=== PATIENT | female | born 1955 | race African-American/Black ===

== ENCOUNTER 2017-01-06 11:50 | Inpatient (IN) ==
--- NOTE | 2017-01-06 12:21 | EKG Report ---
Stationary ECG Study [facility] ER Test Date: 01/06/2017 12:01:15 PM Pat Name: HELADIO HAIRSTON Department: Room: 265 Gender: F Nanoscience Technician: : 1955 Requested by: Enrique Nielsen Order Number: [id number] Reading MD: AGUSTIN CHAVIS Intervals [place] Rate: 100 P: 13 HI: 175 QRS: 4 QRSD: 66 T: 52 QT: 342 QTc: 399 Interpretive Statements SINUS TACHYCARDIA ANTERIOR INFARCT, PROBABLY OLD Electronically Signed On 01-08-17 12:38:48 SENIOR JAVA SOFTWARE DEVELOPER by AGUSTIN CHAVIS [id number]
[2017-01-06 12:41] LABS: Basophils % 0.1 % (0.0-0.8); Eosinophils # 0.1 10*3/uL (0.0-0.87); Eosinophils % 0.9 % (0.00-10.9); Hematocrit 24.6 VOL% (35.7-47.0); Hemoglobin 8.2 GM/DL (12.0-16.0); Immature Granulocytes % 0.4 %; Immature Granulocytes Absolute 0.03 #; Lymphocytes # 1.9 10*3/uL (1.4-4.0); Lymphocytes % 22.3 % (21.3-54.2); Mean Corpuscular HGB Conc 33.3 GM/DL (32-36); Mean Corpuscular Hemoglobin 31 PG (27-34); Mean Corpuscular Volume 92.5 FL (87-102); Mean Platelet Volume 11.7 FL (9.6-12.0); Monocytes # 0.5 10*3/uL (0.11-0.8); Neutrophils % 70.3 % (38.7-73.9); Platelet Count 175 T/CUMM (130-400); Red Blood Count 2.66 MC/CUMM (3.8-5.5); White Blood Count 8.5 T/CUMM (4-12)
[2017-01-06 12:49] LABS: PT Patient Result 10.9 SECS; Partial Thromboplastin Time < 21.0 SECS (0-40)
--- NOTE | 2017-01-06 12:50 | XRay Report ---
Portable chest. Indication: Dyspnea. Shortness of breath. The heart is normal in size. The mediastinal contours are unremarkable. The pulmonary vasculature is normal. Suspected small calcified lymph node in the right paratracheal region. There is no consolidation, pneumothorax, or pleural effusion. Degenerative changes are noted within the spinal column and shoulders. Impression: No acute abnormality. PROCEDURE INTERPRETED AT [facility] DEPARTMENT OF RADIOLOGY Final Report Signed by: Dr. Lauren Sahni
[2017-01-06 13:24] LABS: Alanine Aminotransferase 17 U/L (13-56); Albumin 2.8 G/DL (3.4-5.0); Alkaline Phosphatase 92 U/L (45-117); Aspartate Amino Transferase 9 U/L (0-37); Blood Urea Nitrogen 27 MG/DL (7-18); Calcium 8.1 MG/DL (8.5-10.1); Glucose 285 MG/DL (74-106); Osmolality,Calculated 302.7 MOS/KG (273-304); Potassium 4.2 MMOL/L (3.5-5.1); Sodium 145 MMOL/L (136-145); Total Protein 5.6 G/DL (6.4-8.3); Troponin I Only < 0.015 NG/ML (0.00-0.045)
--- NOTE | 2017-01-06 13:33 | Emergency Department Note ---
Kenneth Eid Emily, am scribing for, and in the presence of, Enrique Dockery MD 13:02. Sarkis Eid Phillip K, MD, personally performed the services described in this documentation, ascribed by Laura Cooper in my presence, and it is both accurate and complete [id number] . Arrival - Arrival Chief Complaint: Chest Pain Stated Complaint: bleeding and chest pain ED Nursing Triage Note: c/o rectal bleeding and chest pain. rectal bleeding started yesterday, was seen yesterday for. states that chest pain started toda+ . +SOB Mode of Arrival: Wheelchair Limitations: No Limitations Source: Patient Time Seen by Provider: 01/06/17 12:35 - History of Present Illness HPI Narrative: Pt is a 61 y/o female who came to ED with c/o rectal bleeding and chest pain that started yesterday. Pt has associated sxs SOB, pain worse on exertion, abdomen cramping but denies N/V or fever. Pt describes rectal bleeding bright red in color with clots. Pt notes having scope done last week. PMHx of heart cath -5yrs ago. Onset (ago): day(s) Consistency: constant Severity: moderate Severity scale (1-10): 6 Quality: aching Allergies/Adverse Reactions: Allergies Allergy/AdvReac Type Severity Reaction Status Date / Time No Known Allergies Allergy Verified 08/27/16 11:38 Home Medications: Home Medications Medication Instructions Recorded Confirmed Type Clopidogrel [Plavix] 75 mg PO DAILY 08/27/16 01/06/17 History Dapagliflozin Propanediol [Farxiga] 5 mg PO DAILY 08/27/16 01/06/17 History Furosemide Tab [Lasix Tab] 40 mg PO DIRECTED PRN 08/27/16 01/06/17 History Insulin Glargine [Lantus] 22 units SUBCUT BEDTIME 08/27/16 01/06/17 History Lisinopril/Hydrochlorothiazide 1 tablet PO DAILY 08/27/16 01/06/17 History [Lisinopril-Hctz 20-12.5 mg Tab] Metoprolol Succinate 25 mg PO DAILY 08/27/16 01/06/17 History Omeprazole 20 mg PO BID 08/27/16 01/06/17 History glipiZIDE [Glipizide] 5 mg PO BID 08/27/16 01/06/17 History metFORMIN [Glucophage] 850 mg PO BID 08/27/16 01/06/17 History Ciprofloxacin Tab [Cipro Tab] 500 mg PO BID #20 tablet 01/05/17 01/06/17 Rx traMADol TAB [Ultram] 50 mg PO Q6H PRN #20 tablet 01/05/17 01/06/17 Rx Review of System - Review of System 12 point system: reviewed and no additional remarkable complaints except as stated - Review of System Constitutional: Absent: chills, fever Respiratory: Present: respiratory distress (SOB) Cardiovascular: Present: chest pain (pain worse with exertion). Absent: dyspnea on exertion Gastrointestinal: Present: abdominal pain (cramping). Absent: nausea, vomiting Genitourinary female: Present: other (rectal bleeding with clots) Musculoskeletal: Absent: arm pain, back pain, leg pain, neck pain Skin: Absent: rash Neurological: Absent: headache, numbness, paresthesias, confusion, abnormal gait Psychiatric: Absent: anxiety Medical,Surgical,& Family Hx - Medical History Cardio: History of: Hypertension, Cardiovascular Problems (STENT) Psychological: History of: Anxiety Disorders No history of: Bipolar Disorder, Depression, Psychiatric Problems Neurology: No history of: Seizures, Neurological Problems HEENT: History of: Eye Problem (Retina problems) Endocrine: History of: Diabetes Mellitus (IDDM), Dyslipidemia Rheumatology: No history of;: Rheumatological Problems Respiratory: No history of: Respiratory Problems Genitourinary: History of: Bladder Problem, Recurring Urinary Tract Infections Gastrointestinal: History of: Clostridium Difficile, GERD, Hemorrhoids, Hematochezia No history of: GI Problems Reproductive: No history of: Abnormal Pap Smear, Breast Cancer, Reproductive Cancer - Surgical History Cardiac Surgeries: Sugical HX of: Cardiac Catheterization (Stent x1 - - Last visit 12/21/2016 - negative w/u) Patient Denies: Carotid Endarterectomy HEENT Surgeries: Surgical HX of: Eye Surgery (Cataracts bilaterally removed) Patient denies: Carotid Endarterectomy Abdominal Surgeries: Surgical HX of: Abdominal Surgery, Appendectomy, Cholecystectomy, Hernia Repair (Abdominal hernia) Patient denies: Colonoscopy, Gastric Bypass Surgery, EGD Reproductive Surgeries: Surgical HX of;: Gynecologic Surgery, Hysterectomy Patient denies;: Genitourinary Surgery Orthopedic Surgeries: Patient denies;: Implanted Devices, Orthopedic Surgery - Family History Family History: Reports;: Family Cancer (Father (lung)), Family Diabetes (Mother , SOn), Family Heart Disease (Mother), Family Hypertension (Mother) Denies;: Family Anesthesia Reaction, Family Psychiatric Problems, Family Stroke - Social History Smoking Status: Never smoker Frequency of Alcohol Use: None Type of Drug Use: None Exam Vital Signs: Vital Signs Temperature 97.0 F L 01/06/17 11:51 Pulse Rate 98 H 01/06/17 11:51 Respiratory Rate 20 01/06/17 12:18 Blood Pressure 143/80 01/06/17 11:51 O2 Sat by Pulse Oximetry 100 01/06/17 11:51 - General General appearance: alert, in no apparent distress - Head Head exam: Present: atraumatic, normocephalic - Eye Eye exam: Present: PERRL, EOMI - ENT ENT exam: Present: mucous membranes moist. Absent: mucous membranes dry - Neck Neck exam: Present: full ROM, tenderness - Chest Chest inspection: Present: symmetric chest wall rise. Absent: tenderness - Respiratory Respiratory exam: Present: normal lung sounds bilaterally. Absent: respiratory distress - Cardiovascular Cardiovascular exam: Present: regular rate, normal rhythm, normal heart sounds - Abdominal Exam Abdominal exam: Present: soft, tenderness (diffusely and tender to palpation). Absent: distention, guarding, rebound - Rectal Exam Rectal exam: Present: heme (+) stool, other (gross blood on rectal exam with clots) - Extremities Exam Extremities exam: Present: full ROM, pedal edema (trace). Absent: tenderness - Neurological Exam Neurological exam: Present: alert, oriented X3, CN II-XII intact. Absent: motor sensory deficit - Psychiatric Psychiatric exam: Present: normal affect, normal mood - Skin Skin exam: Present: warm, dry Course Course Narrative: Patient's cardiac enzymes are negative. Patient is anemic and is having gross blood per rectal exam. We will admit to the hospitalist and consult cardiology. We will hold her Plavix. Results - Labs CBC & BMP: 01/06/17 12:32 01/06/17 11:55 - Diagnostic Findings Procedure: Chest x-ray: report reviewed by me (No acute abnormality.) Disposition Clinical Impression: Lower GI hemorrhage, Chest pain, possible angina pectoris Case discussed with: patient, patient's physician Disposition: Still a Patient Condition: Guarded Additional Instructions: Admit to the hospitalist.
[2017-01-06] MEDS ORDERED: ONDANSETRON 4 MG/2 ML VIAL IV PRN (14:14)
[2017-01-06] MEDS ORDERED: INSULIN LISPRO 100 UNIT/ML SUBCUT ONE (14:14)
[2017-01-06] MEDS ORDERED: BISACODYL 5 MG TABLET PO PRN (14:14)
[2017-01-06] MEDS ORDERED: traMADol 50 MG TABLET PO PRN (14:21)
--- NOTE | 2017-01-06 14:26 | Hospitalist History & Physical ---
<Augusta Cooney N - Last Filed: 01/06/17 14:32> History of Present Illness History of present illness: Ms. Jones is a 61 year old female Home Medications Medication Instructions Recorded Confirmed Type Clopidogrel [Plavix] 75 mg PO DAILY 08/27/16 01/06/17 History Dapagliflozin Propanediol [Farxiga] 5 mg PO DAILY 08/27/16 01/06/17 History Furosemide Tab [Lasix Tab] 40 mg PO DIRECTED PRN 08/27/16 01/06/17 History Insulin Glargine [Lantus] 22 units SUBCUT BEDTIME 08/27/16 01/06/17 History Lisinopril/Hydrochlorothiazide 1 tablet PO DAILY 08/27/16 01/06/17 History [Lisinopril-Hctz 20-12.5 mg Tab] Metoprolol Succinate 25 mg PO DAILY 08/27/16 01/06/17 History Omeprazole 20 mg PO BID 08/27/16 01/06/17 History glipiZIDE [Glipizide] 5 mg PO BID 08/27/16 01/06/17 History metFORMIN [Glucophage] 850 mg PO BID 08/27/16 01/06/17 History Ciprofloxacin Tab [Cipro Tab] 500 mg PO BID #20 tablet 01/05/17 01/06/17 Rx traMADol TAB [Ultram] 50 mg PO Q6H PRN #20 tablet 01/05/17 01/06/17 Rx Allergies Allergy/AdvReac Type Severity Reaction Status Date / Time No Known Allergies Allergy Verified 08/27/16 11:38 Exam - Constitutional Vitals: Period Temp Pulse Resp BP Sys/Gsatelum Pulse Ox Last 24 Hr 97.0 F 98 19-20 143/80 100 Results - Labs CBC & BMP: 01/06/17 12:32 01/06/17 11:55 <Verito Irwin R - Last Filed: 01/06/17 15:05> Assessment and Plan (1) Chest pain Status: Acute Assessment and plan: Serial troponins and EKG no aspirin and Plavix at this time Current Visit: Yes (2) IDDM (insulin dependent diabetes mellitus) Status: Acute Assessment and plan: Restart insulin and glyburide hold metformin Current Visit: Yes (3) Hypertension Status: Acute Assessment and plan: Start Coreg and losartan Current Visit: Yes (4) LALIT (obstructive sleep apnea) Status: Acute Assessment and plan: Dr. Mcgee to evaluate Current Visit: Yes (5) Urinary tract infection Status: Acute Assessment and plan: Continue Rocephin Current Visit: No (6) Hematuria Status: Acute Assessment and plan: May be due to infection but due to the amount of blood will ask urology to see Current Visit: No (7) Lower GI hemorrhage Status: Acute Assessment and plan: Recent colonoscopy will ask Dr. Killian for opinion. Current Visit: Yes History of Present Illness Chief complaint: chest pain History of present illness: Ms. Jones is a 61 year morbid obese -Turkmen female with a history of hypertension and insulin-dependent diabetes presents to the emergency room yesterday with hematuria. Patient was diagnosed with a UTI and given Cipro. She returns today reports that when she was headed down to [place] to see her eye doctor she developed chest pressure with associated shortness of breath and nausea. Patient is currently seeing Dr. Ball. She had a stress test less than a year ago over at [facility]. She had a stent to her heart for years ago. She is currently on aspirin and Plavix which is now on hold. She presents today with rectal bleeding chest pain and hematuria. Dr. Killian had a colonoscopy on December 23, 2016 which showed transverse polyp which was removed via biopsy she also had 2 AVMs in the cecum that were cauterized. Patient also had evidence of cholangio-colitis and moderate sized internal hemorrhoids. We will have cardiology, GI, urology see her today. Medical,Surgical,& Family Hx - Medical History Cardio: History of: Hypertension, Cardiovascular Problems (STENT) Psychological: History of: Anxiety Disorders No history of: Bipolar Disorder, Depression, Psychiatric Problems Neurology: No history of: Seizures, Neurological Problems HEENT: History of: Eye Problem (Retina problems) Endocrine: History of: Diabetes Mellitus (IDDM), Dyslipidemia Rheumatology: No history of;: Rheumatological Problems Respiratory: No history of: Respiratory Problems Genitourinary: History of: Bladder Problem, Recurring Urinary Tract Infections Gastrointestinal: History of: Clostridium Difficile, GERD, Hemorrhoids, Hematochezia No history of: GI Problems Reproductive: No history of: Abnormal Pap Smear, Breast Cancer, Reproductive Cancer - Surgical History Cardiac Surgeries: Sugical HX of: Cardiac Catheterization (Stent x1 - - Last visit 12/21/2016 - negative w/u) Patient Denies: Carotid Endarterectomy HEENT Surgeries: Surgical HX of: Eye Surgery (Cataracts bilaterally removed) Patient denies: Carotid Endarterectomy Abdominal Surgeries: Surgical HX of: Abdominal Surgery, Appendectomy, Cholecystectomy, Hernia Repair (Abdominal hernia) Patient denies: Colonoscopy, Gastric Bypass Surgery, EGD Reproductive Surgeries: Surgical HX of;: Gynecologic Surgery, Hysterectomy Patient denies;: Genitourinary Surgery Orthopedic Surgeries: Patient denies;: Implanted Devices, Orthopedic Surgery - Family History Family History: Reports;: Family Cancer (Father (lung)), Family Diabetes (Mother , SOn), Family Heart Disease (Mother), Family Hypertension (Mother) Denies;: Family Anesthesia Reaction, Family Psychiatric Problems, Family Stroke - Social History Smoking Status: Never smoker Frequency of Alcohol Use: None Type of Drug Use: None Marital Status: Single Lives With:: Alone Functional capacity: independent ambulation - Constitutional Constitutional: Present: fatigue. Absent: fever(s), headache(s) - EENT Eyes: Present: blurry vision. Absent: diplopia Ears: Absent: decreased hearing, ear discharge Nose, mouth and throat: Absent: headache(s), sore throat - Cardiovascular Cardiovascular: Present: chest pain at rest, dyspnea - Respiratory Respiratory: Present: dyspnea, dyspnea on exertion - Gastrointestinal Gastrointestinal: Present: hematochezia, nausea. Absent: abdominal pain, vomiting - Genitourinary Genitourinary: Present: hematuria. Absent: difficulty urinating - Neurological Neurological: Absent: headache(s), syncope - Psychiatric Psychiatric: Absent: anxiety, depression - Endocrine Endocrine: Present: fatigue, heat intolerance. Absent: cold intolerance - Hematologic/Lymphatic Hematologic/Lymphatic: Present: easy bleeding, easy bruising Exam - Constitutional Vitals: Period Temp Pulse Resp BP Sys/Gastelum Pulse Ox Last 24 Hr 97.0 F 98 19-20 143/80 100 General appearance: no acute distress, morbidly obese - Head Head exam: Present: normal inspection, normocephalic - Eye Eye exam: Present: EOMI, conjunctival injection Pupils: Present: WERO, normal accommodation - Neck Neck exam: Present: thyromegaly. Absent: lymphadenopathy - Respiratory Respiratory exam: Present: clear to auscultation bilaterally. Absent: rhonchi, wheezes - Cardiovascular Cardiovascular exam: Present: regular rate and rhythm. Absent: systolic murmur - GI/Abdominal GI/Abdominal exam: Present: normal bowel sounds, soft. Absent: tenderness - Extremities Exam Extremities exam: Present: normal capillary refill, edema - Neurological Exam Neurological exam: Present: alert, oriented X3 - Psychiatric Psychiatric exam: Present: normal affect, normal mood - Skin Skin exam: Present: normal color, warm Results - Labs CBC & BMP: 01/06/17 12:32 01/06/17 11:55 Lab Results: I have reviewed the past 24 hour labs - EKG EKG shows: sinus rhythm (Normal sinus rhythm with Q waves in lead III, aVF, V2, V3 and V4) - Diagnostic Findings Procedure: Chest x-ray: report reviewed by me (No acute abnormality)
--- NOTE | 2017-01-06 16:08 | EKG Report ---
Stationary ECG Study [facility] ER Test Date: 01/06/2017 4:06:55 PM Pat Name: HELADIO HAIRSTON Department: Room: 265 Gender: F Anode Builder: JAISON : 1955 Requested by: Verito Hanna Order Number: [id number] Reading MD: AGUSTIN CHAVIS Intervals [place] Rate: 103 P: 16 SD: 156 QRS: 12 QRSD: 76 T: 50 QT: 349 QTc: 408 Interpretive Statements SINUS TACHYCARDIA Electronically Signed On 01-08-17 12:41:50 GEOSPATIAL DEVELOPER by AGUSTIN CHAVIS [email or web address]
[2017-01-06] MEDS ORDERED: DEXTROSE 50% 25 GM/50 ML VIAL IV PRN ×3 (17:23→17:44)
[2017-01-06] MEDS ORDERED: GLUCAGON 1 MG VIAL IM PRN ×3 (17:23→17:44)
[2017-01-06] MEDS ORDERED: INSULIN LISPRO 100 UNIT/ML SUBCUT SCH (17:28)
[2017-01-06] MEDS: CARVEDILOL 3.125 MG TABLET PO SCH ×2 (18:01→21:59)
[2017-01-06] MEDS: glipiZIDE 5 MG TABLET PO SCH ×2 (18:01→21:59)
[2017-01-06] MEDS: LOSARTAN 25 MG TABLET PO SCH (18:02)
[2017-01-06] MEDS: INSULIN LISPRO 100 UNIT/ML SUBCUT SCH ×3 (18:03→22:04)
[2017-01-06] MEDS: PANTOPRAZOLE 40 MG VIAL IV SCH ×2 (18:05→21:59)
[2017-01-06] MEDS: cefTRIAXone 1,000 MG in SODIUM CHLORIDE 0.9% 100 ML IV SCH (18:10)
--- NOTE | 2017-01-06 20:28 | EKG Report ---
Stationary ECG Study [facility] Test Date: 01/06/2017 8:26:26 PM Pat Name: HELADIO HAIRSTON Department: Room: 265 Gender: F Restoration Silversmith: Ian : 1955 Requested by: Verito Hanna Order Number: [id number] Reading MD: OMID SNOW Intervals [place] Rate: 104 P: 49 SC: 180 QRS: 13 QRSD: 83 T: 54 QT: 341 QTc: 401 Interpretive Statements SINUS TACHYCARDIA NONSPECIFIC T WAVE ABNORMALITY Electronically Signed On 01-09-17 17:17:51 PUTTY REMOVER by OMID SNOW [email or web address]
[2017-01-06] MEDS: INSULIN GLARGINE 100 UNIT/ML SUBCUT SCH (22:01)
[2017-01-07 01:21] LABS: Risk Ratio 4.21; VLDL CHOLESTEROL 23.2 MG/DL
--- NOTE | 2017-01-07 08:24 | Sleep Medicine Consult ---
Assessment and Plan (1) Unspecified sleep apnea Status: Acute Assessment and plan: This patient does indeed have symptoms quite consistent with sleep apnea. She is quite fatigued and sleepy and also has a family history of sleep apnea. She has significant medical comorbidities that could be exacerbated by untreated sleep apnea. We will set her up for polysomnography as soon as possible after discharge and will follow up with her in the sleep clinic. Thank you for this consult and the opportunity to participate in her care. Current Visit: Yes (2) IDDM (insulin dependent diabetes mellitus) Status: Acute Assessment and plan: The prevalence rate for obstructive sleep apnea in patients with type 2 diabetes can be as high as 86%. Those patients with moderate to severe obstructive sleep apnea are at a greater risk for diabetic nephropathy and neuropathy. Compliance with CPAP therapy for these patients can lead to improvement in glycemic control and improvement in insulin sensitivity. Current Visit: Yes (3) Hypertension Status: Acute Assessment and plan: The prevalence rate for obstructive sleep apnea patients with hypertension is 35 %. That rate can be as high as 80% in patients who require 4 or more medications for blood pressure control. Current Visit: Yes (4) Coronary artery disease Status: Acute Assessment and plan: I reviewed the [place] data from Lancet 2004 with the patient to their understanding. This study proved significant reduction in the risk of fatal and nonfatal cardiac events in patients with severe obstructive sleep apnea compliant with CPAP, in comparison with those noncompliant with CPAP for severe sleep apnea. Current Visit: Yes (5) Periodic limb movement disorder Status: Acute Assessment and plan: This patient does have symptoms of restless legs and periodic limb movement disorder. This can be associated with diabetic neuropathy but also with iron deficiency anemia. This patient is hospitalized with significant anemia and may have a chronic component of iron deficiency. Replacement of iron to get ferritin levels greater than 50 g can help alleviate symptoms of restless legs. Current Visit: Yes History of Present Illness Chief complaint: sleep apnea History of present illness: Ms. Jones is a 61 year old female with a history of coronary artery disease, hypertension, and type 2 diabetes. She was admitted with chest pain and shortness of breath. During the course of her evaluation it was noted that she had symptoms and findings concerning for sleep apnea. She does have a long history of loud snoring and has been told that she stops breathing during her sleep. She will awaken from sleep short of breath. She usually retires about 10 p.m. and awakens at 6 a.m. She will awaken up to 3 times a night to urinate. She is unrefreshed and fatigued upon awakening and has an [place] sleepiness score of 15. She also is bothered by restlessness of her legs. Home Medications Medication Instructions Recorded Confirmed Type Clopidogrel [Plavix] 75 mg PO DAILY 08/27/16 01/06/17 History Dapagliflozin Propanediol [Farxiga] 5 mg PO DAILY 08/27/16 01/06/17 History Furosemide Tab [Lasix Tab] 40 mg PO DIRECTED PRN 08/27/16 01/06/17 History Insulin Glargine [Lantus] 22 units SUBCUT BEDTIME 08/27/16 01/06/17 History Lisinopril/Hydrochlorothiazide 1 tablet PO DAILY 08/27/16 01/06/17 History [Lisinopril-Hctz 20-12.5 mg Tab] Metoprolol Succinate 25 mg PO DAILY 08/27/16 01/06/17 History Omeprazole 20 mg PO BID 08/27/16 01/06/17 History glipiZIDE [Glipizide] 5 mg PO BID 08/27/16 01/06/17 History metFORMIN [Glucophage] 850 mg PO BID 08/27/16 01/06/17 History Ciprofloxacin Tab [Cipro Tab] 500 mg PO BID #20 tablet 01/05/17 01/06/17 Rx traMADol TAB [Ultram] 50 mg PO Q6H PRN #20 tablet 01/05/17 01/06/17 Rx Allergies Allergy/AdvReac Type Severity Reaction Status Date / Time No Known Allergies Allergy Verified 08/27/16 11:38 Review of systems: Notable for nocturia, lower extremity swelling. Otherwise unremarkable from a sleep standpoint. Exam (Pulmonay) H&P - Constitutional Vitals: Period Temp Pulse Resp BP Sys/Gastelum Pulse Ox Last 24 Hr 97.5 F-98.7 F 82-112 16-18 89-129/43-68 96-100 Exam: She is alert and responsive in no acute distress. She has a very pleasant affect. Pupils equal round reactive to light and accommodation. Extraocular movements intact. Oropharynx with class IV Mallampati exam. Neck is supple without adenopathy or thyromegaly. She has an 18 inch neck circumference. No supraclavicular adenopathy is noted. Chest with symmetrical breath sounds without focal wheezes, rhonchi, or rales. Cardiac exam reveals a regular rhythm without murmur or gallop. Abdomen soft nontender without palpable hepatosplenomegaly or mass. Extremities are without clubbing, cyanosis or edema. Neurologically, she is grossly intact. She moves all extremities with good strength. Medical,Surgical,& Family Hx - Medical History Cardio: History of: Hypertension, Cardiovascular Problems (STENT) Psychological: History of: Anxiety Disorders No history of: Bipolar Disorder, Depression, Psychiatric Problems Neurology: No history of: Seizures, Neurological Problems HEENT: History of: Eye Problem (Retina problems) Endocrine: History of: Diabetes Mellitus (IDDM), Dyslipidemia Rheumatology: No history of;: Rheumatological Problems Respiratory: History of: Obstructive Sleep Apnea No history of: Respiratory Problems Genitourinary: History of: Bladder Problem, Recurring Urinary Tract Infections Gastrointestinal: History of: Clostridium Difficile, GERD, Hemorrhoids, Hematochezia No history of: GI Problems Reproductive: No history of: Abnormal Pap Smear, Breast Cancer, Reproductive Cancer - Surgical History Cardiac Surgeries: Sugical HX of: Cardiac Catheterization (Stent x1 - - Last visit 12/21/2016 - negative w/u) Patient Denies: Carotid Endarterectomy HEENT Surgeries: Surgical HX of: Eye Surgery (Cataracts bilaterally removed) Patient denies: Carotid Endarterectomy Abdominal Surgeries: Surgical HX of: Abdominal Surgery, Appendectomy, Cholecystectomy, Hernia Repair (Abdominal hernia) Patient denies: Colonoscopy, Gastric Bypass Surgery, EGD Reproductive Surgeries: Surgical HX of;: Gynecologic Surgery, Hysterectomy Patient denies;: Genitourinary Surgery Orthopedic Surgeries: Patient denies;: Implanted Devices, Orthopedic Surgery - Family History Family History: Reports;: Family Cancer (Father (lung)), Family Diabetes (Mother , SOn), Family Heart Disease (Mother), Family Hypertension (Mother) Denies;: Family Anesthesia Reaction, Family Psychiatric Problems, Family Stroke Additional Family History: Notable for obstructive sleep apnea in her brother and her son. - Social History Smoking Status: Never smoker Frequency of Alcohol Use: None Type of Drug Use: None Results - Labs CBC & BMP: 01/07/17 00:50 01/06/17 11:55 Labs: She has severe normocytic anemia. TSH was not done with admission labs.
[2017-01-07] MEDS: INSULIN LISPRO 100 UNIT/ML SUBCUT SCH ×4 (10:32→21:55)
[2017-01-07] MEDS: glipiZIDE 5 MG TABLET PO SCH ×2 (10:33→21:53)
[2017-01-07] MEDS: LOSARTAN 25 MG TABLET PO SCH (10:40)
[2017-01-07] MEDS: CARVEDILOL 3.125 MG TABLET PO SCH ×2 (10:40→21:57)
[2017-01-07] MEDS: PANTOPRAZOLE 40 MG VIAL IV SCH ×2 (10:41→21:56)
[2017-01-07] MEDS: ACETAMINOPHEN 325 MG TABLET PO SCH ×2 (12:33→21:54)
--- NOTE | 2017-01-07 13:21 | Urology Consultation ---
History of Present Illness - Data of Consult Consult date: 01/07/17 - Consult Narrative History of present illness: Ms. Jones is a 61 year old female ` This 61-year-old black female who is seen in consultation because of urinary tract infection. The patient is known tome I saw her. The patient had a negative workup last year for recurrent urinary tract infection The patient was in the emergency room earlier this week with symptoms of a urinary tract infection and she had pyuria and microscopic hematuria on urinalysis and subsequent urine culture grew out Escherichia coli over 100,000 colonies that is sensitive to Rocephin. The patient was given a prescription for Cipro but did not feel this because she had rectal bleeding and had to return to the hospital. Recommended we continue Rocephin because this is appropriate antibiotic and we can switch her to by mouth antibiotics when she leaves the hospital.. CC: Verito Irwin MD - Home Medications and Allergies Home Medications: Home Medications Medication Instructions Recorded Confirmed Type Clopidogrel [Plavix] 75 mg PO DAILY 08/27/16 01/06/17 History Dapagliflozin Propanediol [Farxiga] 5 mg PO DAILY 08/27/16 01/06/17 History Furosemide Tab [Lasix Tab] 40 mg PO DIRECTED PRN 08/27/16 01/06/17 History Insulin Glargine [Lantus] 22 units SUBCUT BEDTIME 08/27/16 01/06/17 History Lisinopril/Hydrochlorothiazide 1 tablet PO DAILY 08/27/16 01/06/17 History [Lisinopril-Hctz 20-12.5 mg Tab] Metoprolol Succinate 25 mg PO DAILY 08/27/16 01/06/17 History Omeprazole 20 mg PO BID 08/27/16 01/06/17 History glipiZIDE [Glipizide] 5 mg PO BID 08/27/16 01/06/17 History metFORMIN [Glucophage] 850 mg PO BID 08/27/16 01/06/17 History Ciprofloxacin Tab [Cipro Tab] 500 mg PO BID #20 tablet 01/05/17 01/06/17 Rx traMADol TAB [Ultram] 50 mg PO Q6H PRN #20 tablet 01/05/17 01/06/17 Rx Allergies/Adverse Reactions: Allergies Allergy/AdvReac Type Severity Reaction Status Date / Time No Known Allergies Allergy Verified 08/27/16 11:38 Exam - Constitutional Vitals: Period Temp Pulse Resp BP Sys/Gastelum Pulse Ox Last 24 Hr 97.4 F-98.2 F 87-92 18-18 98-123/54-78 Results - Labs CBC & BMP: 01/07/17 00:50 01/06/17 11:55
[2017-01-07] MEDS: cefTRIAXone 1,000 MG in SODIUM CHLORIDE 0.9% 100 ML IV SCH (14:32)
[2017-01-07] MEDS: traMADol 50 MG TABLET PO SCH ×2 (14:37→21:54)
[2017-01-07] MEDS: GABAPENTIN 100 MG CAPSULE PO SCH ×2 (14:37→21:53)
--- NOTE | 2017-01-07 14:46 | Cardiology Consult Note ---
I, Abi Herrera, VICENTE, am scribing for, and in the presence of, Garland Sosa MD 14:44. Assessment and Plan - Time spent with patient Time spent with patient: Greater than 30 minutes (1) Chest pain Status: Acute Assessment and plan: We will continue to cycle cardiac biomarkers and EKG. We will obtain an echocardiogram to evaluate for any wall motion abnormalities. We will try to obtain her previous cath reprots from [place]. She is to receive 2 units of blood today. This may help some with her symptoms. GI will see her in consultation. At this time, her Aspirin and Plavix are being held. Her stents are at least a year old, she believes her stent was placed around 5 years ago. We will continue to follow and aid in management of her chest discomfort. Thank you for allowing us to participate in her care. Differential diagnosis of her chest pain include coronary disease, GI or muscle skeletal. When I press on her chest it does reproduce the same pain. This could be musculoskeletal. So far, cardiac isoenzymes are negative. plan/recommendation: Treat for musculoskeletal pain-tramadol, Tylenol, gabapentin Echo/Doppler-evaluate murmur Agree with consulting sleep medicine-likely has sleep apnea No aspirin or Plavix for now because of her GI bleeding GI may proceed with workup as deem best. No contraindication for E scope her C scope. Cardiac isoenzymes every 6 hours 4 EKG every morning times 3 a proton pump inhibitor. Further decisions depends upon response to therapy. At this point she is not in a heart cath or stress test Thank you for allowing me to participate in this patient's care Current Visit: Yes (2) Coronary artery disease Status: Acute Current Visit: Yes (3) Hypertension Status: Acute Current Visit: Yes (4) IDDM (insulin dependent diabetes mellitus) Status: Acute Current Visit: Yes (5) Lower GI hemorrhage Status: Acute Current Visit: Yes (6) LALIT (obstructive sleep apnea) Status: Acute Current Visit: Yes (7) Hematuria Status: Acute Current Visit: No (8) Urinary tract infection Status: Acute Current Visit: No (9) Chest wall pain Status: Acute Current Visit: Yes History of Present Illness - Data of Consult Patient: known to practice within the last 3 years (followed by Dr. Ball) Consult date: 01/07/17 Requesting Physician: Verito Irwin - Consult Narrative Reason for consult: chest pain, SOB History of present illness: Ms. Jones is a 61 year old female who is routinely followed by Dr. Ball. She has a history of hypertension, diabetes, obstructive sleep apnea , hyperlipidemia, gastroesophageal reflux disease, cough related to PATSY inhibitor. She has risk factors significant for : Diabetes, hypertension, dyslipidemia, obesity, sedentary lifestyle. She has had prior stent placement in the past and she believes it has been around 5 years ago. She is undergoing cardiac evaluation within the last one to 2 years at [facility]. We will try to obtain these records. She presented to the emergency room yesterday with complaints of rectal bleeding. She also complained of a chest heaviness and feeling short of breath and fatigued. She is on her way to [place] to the eye doctor for Lasix surgery when she made it to [facility] and continued passing blood from the rectum. At that time she began having a midsternal chest heaviness and shortness of breath. She also complains of feeling dizzy and feeling like her heart was racing. She reports she has been bleeding from her rectum since Wednesday. She tells me she has been passing clots. Prior to this she tells me her stools have looked very dark. This event going on since before her colonoscopy on 12/23/[address] Killian. She tells me she has been feeling short of breath and fatigue since before her colonoscopy. She tells me her shortness of breath comes on with rest and exertion. She tells me her chest heaviness lasted until she arrived in the emergency room and went away on its own. She did not receive any nitrates. Colonoscopy on 12/23/2016 showed a transverse polyp and 2 AVMs, moderate hemorrhoids, cholangio-colitis. Her H&H on arrival was 8.2&24.6. Hemoglobin today is 6.7. RBC is 2.66. Her troponins are negative. BNP is 8. EKG shows sinus tachycardia. Today, she is scheduled to receive 2 units of blood. GI has also been consulted to see her. At this time, her Plavix and Aspirin are being held due to her bleeding and anemia. Her symptoms could be due to her anemia, but she will need risk factor stratification. I discussed with her possibly following up once she is stable for a stress test or left heart catheterization , but at this time, she is not a candidate for percutaneous coronary intervention. CC: Verito Irwin MD - Home Medications and Allergies Home Medications: Home Medications Medication Instructions Recorded Confirmed Type Clopidogrel [Plavix] 75 mg PO DAILY 08/27/16 01/06/17 History Dapagliflozin Propanediol [Farxiga] 5 mg PO DAILY 08/27/16 01/06/17 History Furosemide Tab [Lasix Tab] 40 mg PO DIRECTED PRN 08/27/16 01/06/17 History Insulin Glargine [Lantus] 22 units SUBCUT BEDTIME 08/27/16 01/06/17 History Lisinopril/Hydrochlorothiazide 1 tablet PO DAILY 08/27/16 01/06/17 History [Lisinopril-Hctz 20-12.5 mg Tab] Metoprolol Succinate 25 mg PO DAILY 08/27/16 01/06/17 History Omeprazole 20 mg PO BID 08/27/16 01/06/17 History glipiZIDE [Glipizide] 5 mg PO BID 08/27/16 01/06/17 History metFORMIN [Glucophage] 850 mg PO BID 08/27/16 01/06/17 History Ciprofloxacin Tab [Cipro Tab] 500 mg PO BID #20 tablet 01/05/17 01/06/17 Rx traMADol TAB [Ultram] 50 mg PO Q6H PRN #20 tablet 01/05/17 01/06/17 Rx Allergies/Adverse Reactions: Allergies Allergy/AdvReac Type Severity Reaction Status Date / Time No Known Allergies Allergy Verified 08/27/16 11:38 - Constitutional Constitutional: Present: fatigue. Absent: anorexia, chills, daytime sleepiness , excessive sweating, fever(s), frequent falls, headache(s), increased appetite , lethargy, malaise, night sweats, stops breathing during sleep, weakness, weight gain, weight loss - EENT Eyes: Absent: blurry vision, diplopia, loss of vision Ears: Absent: decreased hearing, ear discharge, ear pain Nose, mouth and throat: Absent: dysphagia, epistaxis, headache(s), hoarseness, lip swelling, nasal congestion, neck mass, neck pain, sinus pressure, sore throat, throat swelling, tongue swelling, vertigo - Cardiovascular Cardiovascular: Present: as per HPI, chest pain at rest, dyspnea, dyspnea on exertion, palpitations ("racing heart"). Absent: claudication, diaphoresis, edema, radiating jaw, neck or arm pain, lightheadedness, orthopnea, PND - Respiratory Respiratory: Present: as per HPI, dyspnea, dyspnea on exertion. Absent: cough, hemoptysis, wheezing, snoring, pain on inspiration - Gastrointestinal Gastrointestinal: Present: as per HPI, cramping (in lower quadrants), hematochezia, melena. Absent: abdominal pain, bloating, coffee ground emesis, constipation, diarrhea, dysphagia, hematemesis, nausea, vomiting - Genitourinary Genitourinary: Present: hematuria. Absent: abnormal vaginal bleeding, urinary hesitancy, urinary incontinence - Musculoskeletal Musculoskeletal: Absent: arthralgias, back pain, joint swelling, limited range of motion, muscle cramps, muscle weakness, myalgias - Neurological Neurological: Present: dizziness. Absent: abnormal gait, abnormal speech, behavioral changes, confusion, convulsions, disequilibrium, focal weakness, frequent falls, headache(s), memory loss, numbness, paresthesias, radicular pain , syncope, tremor(s) - Psychiatric Psychiatric: Absent: anxiety, confusion, depression, memory loss, panic attacks - Endocrine Endocrine: Present: fatigue. Absent: cold intolerance, heat intolerance, polydipsia, polyphagia - Hematologic/Lymphatic Hematologic/Lymphatic: Present: as per HPI Medical,Surgical,& Family Hx - Medical History Cardio: History of: Hypertension, Cardiovascular Problems (STENT) Psychological: History of: Anxiety Disorders No history of: Bipolar Disorder, Depression, Psychiatric Problems Neurology: No history of: Seizures, Neurological Problems HEENT: History of: Eye Problem (Retina problems) Endocrine: History of: Diabetes Mellitus (IDDM), Dyslipidemia Rheumatology: No history of;: Rheumatological Problems Respiratory: History of: Obstructive Sleep Apnea No history of: Respiratory Problems Genitourinary: History of: Bladder Problem, Recurring Urinary Tract Infections Gastrointestinal: History of: Clostridium Difficile, GERD, Hemorrhoids, Hematochezia No history of: GI Problems Reproductive: No history of: Abnormal Pap Smear, Breast Cancer, Reproductive Cancer - Surgical History Cardiac Surgeries: Sugical HX of: Cardiac Catheterization (Stent x1 - - Last visit 12/21/2016 - negative w/u) Patient Denies: Carotid Endarterectomy HEENT Surgeries: Surgical HX of: Eye Surgery (Cataracts bilaterally removed) Patient denies: Carotid Endarterectomy Abdominal Surgeries: Surgical HX of: Abdominal Surgery, Appendectomy, Cholecystectomy, Hernia Repair (Abdominal hernia) Patient denies: Colonoscopy, Gastric Bypass Surgery, EGD Reproductive Surgeries: Surgical HX of;: Gynecologic Surgery, Hysterectomy Patient denies;: Genitourinary Surgery Orthopedic Surgeries: Patient denies;: Implanted Devices, Orthopedic Surgery - Family History Family History: Reports;: Family Cancer (Father (lung)), Family Diabetes (Mother , SOn), Family Heart Disease (Mother), Family Hypertension (Mother) Denies;: Family Anesthesia Reaction, Family Psychiatric Problems, Family Stroke - Social History Smoking Status: Never smoker Frequency of Alcohol Use: None Type of Drug Use: None Physical Examination Vital Signs Temp Pulse Resp BP Pulse Ox 97.0 F L 98 H 19 143/80 100 01/06/17 11:51 01/06/17 11:51 01/06/17 11:51 01/06/17 11:51 01/06/17 11:51 General: Present: Appears Well, No Apparent Distress HEENT: Present: Normocephaly, Mucus Membranes Moist Neck: Present: Supple Neck, Midline Trachea, No Masses Cardiac: Present: Reg Rate and Rhythm Lungs: Present: Normal Exam, Normal Breath Sounds, No Wheeze, Rales, Rhonchi Neuro: Present: Grossly Intact. Absent: Resting Tremor, Essential Tremor Abdomen: Present: Soft, Active Bowel Sounds, Tender (to bilateral lower quadrants) Skin: Present: Clear. Absent: Rash Musculoskeletal: Present: No Fluid Collection, No Pain, Normal Range of Motion Extremities: Present: Normal Gait, No Clubbing, No Cyanosis, No Edema, Normal Upper Extr. Pulses, Normal Lower Extr. Pulses Other: 2+ chest wall tenderness++ Result/EKG - Labs CBC & BMP: 01/07/17 00:50 01/06/17 11:55 Lab Results: I have reviewed the past 24 hour labs Labs: Laboratory Results - last 24 hr 01/06/17 01/06/17 01/06/17 16:58 17:15 19:55 Hgb POC Glucose 332 H Troponin I < 0.015 < 0.015 Triglycerides Cholesterol LDL Cholesterol VLDL Cholesterol HDL Cholesterol Heart Disease Risk Ratio 01/06/17 01/07/17 01/07/17 21:59 00:50 00:50 Hgb 6.7 L POC Glucose 235 H Troponin I Triglycerides 116 Cholesterol 143 LDL Cholesterol 89.0 VLDL Cholesterol 23.2 HDL Cholesterol 34 L Heart Disease Risk Ratio 4.21 01/07/17 07:29 Hgb POC Glucose 198 H Troponin I Triglycerides Cholesterol LDL Cholesterol VLDL Cholesterol HDL Cholesterol Heart Disease Risk Ratio - EKG EKG results: interpreted by me, sinus rhythm EKG shows: tachycardia Specialty Discharge - Follow Up or Referrals Follow up with: Kiersten Ball MD [Physician] - I, Garland Sosa MD, personally performed the services described in this documentation, ascribed by Abi Herrera RN in my presence, and it is both accurate and complete 444 .
--- NOTE | 2017-01-07 16:24 | Hospitalist Progress Note ---
Assessment and Plan (1) Acute blood loss anemia Status: Acute Assessment and plan: 2 units packed red blood cells. Hold all blood thinners. Dr. Killian to see. Monitor hemoglobin every 8 hours Current Visit: Yes (2) Lower GI hemorrhage Status: Acute Assessment and plan: Recent colonoscopy December 23, 2016 showed transverse polyp which was removed, 2 AVMs in the cecum, cholangiole colitis, moderate size internal hemorrhoids. Dr. Killian to see patient, continue Protonix IV Current Visit: Yes (3) Chest pain Status: Acute Assessment and plan: Serial troponins negative, stress test as outpatient Current Visit: Yes (4) IDDM (insulin dependent diabetes mellitus) Status: Acute Assessment and plan: cont insulin and glyburide hold metformin Current Visit: Yes (5) Hypertension Status: Acute Assessment and plan: cont Coreg and losartan Current Visit: Yes (6) LALIT (obstructive sleep apnea) Status: Acute Assessment and plan: Dr. Mcgee recommends outpatient sleep study, Current Visit: Yes (7) Urinary tract infection Status: Acute Assessment and plan: Was seen by Dr. Morgan who reports she grew out E. coli sensitive to Rocephin. Continue Rocephin Current Visit: No (8) Hematuria Status: Acute Assessment and plan: May be due to infection Current Visit: No Hospitalist: Subjective Interval history: Patient still having rectal bleeding and hematuria. He will receive transfusion of 2 units today. Await input from specialist. Exam - Constitutional Vitals: Period Temp Pulse Resp BP Sys/Gastelum Pulse Ox Last 24 Hr 97.4 F-99.2 F 87-92 18-20 98-133/54-88 100 Exam: Heart Rate-[RRR] Lungs-[CTAB] GI-[+bs soft, NT, obese] Ext-[no edema] neuro motor 5/5, alert and oriented times 3 psych normal mood and affect general no acute distress Results - Labs CBC & BMP: 01/07/17 00:50 01/06/17 11:55 Lab Results: I have reviewed the past 24 hour labs Labs: Cholesterol 143, LDL 89 triglycerides 116 Specialty Discharge - Follow Up or Referrals Follow up with: Kiersten Ball MD [Physician] -
--- NOTE | 2017-01-07 17:43 | ECHO Report ---
Laurita Jones Exam Date: 01/07/2017 14:02 Referring Physician: Technologist: Esha Vaca RDCS Age: 61 Ht (in): Wt (lb): Gender: F Exam Location: [facility] Echo Indications: Chest pain, unspecified, IDDM, Essential (primary) hypertension, LALIT, UTI, previous stent, Hematuria BP: / HR: Rhythm: Sinus Technical Quality: Good IMPRESSIONS Mild left ventricular hypertrophy. Left ventricular ejection fraction is estimated at 60 %.. Findings suggestive of left ventricular diastolic dysfunction. The right atrium is mildly enlarged. The left atrium is mildly enlarged. Trace to mild tricuspid valve regurgitation. Mild pulmonary valve regurgitation. Tricuspid regurgitation velocities suggest a PAP of 26- 36 mmHg. MEASUREMENTS (Male / Female) Normal Values 2D ECHO LV Diastolic Diameter PLAX 4.5 cm 4.2 - 5.9 / 3.9 - 5.3 cm LV Systolic Diameter PLAX 3.1 cm LV Fractional Shortening PLAX 32.7 % IVS Diastolic Thickness 1.1 cm 0.6 - 1.0 / 0.6 - 0.9 cm LVPW Diastolic Thickness 1.2 cm 0.6 - 1.0 / 0.6 - 0.9 cm RV Internal Dim ED PLAX 3.4 cm Aortic Root Diameter 3.4 cm LA Systolic Diameter LX 4.4 cm 3.0 - 4.0 / 2.7 - 3.8 cm DOPPLER TR Peak Velocity 255.0 cm/s TR Peak Gradient 26.0 mmHg FINDINGS Left Ventricle Normal left ventricular cavity size. Mild left ventricular hypertrophy. Left ventricular ejection fraction is estimated at 60 %.Findings suggestive of left ventricular diastolic dysfunction. Right Ventricle The right ventricle is normal in size and function. Right Atrium The right atrium is mildly enlarged. Left Atrium The left atrium is mildly enlarged. Mitral Valve Morphologically normal mitral valve without significant stenosis or prolapse. There is no mitral regurgitation. Aortic Valve Morphologically normal aortic valve without significant sclerosis or stenosis. There is no aortic regurgitation. Tricuspid Valve Morphologically normal tricuspid valve. Trace to mild tricuspid valve regurgitation. Tricuspid regurgitation velocities suggest a PAP of 26- 36 mmHg. Pulmonic Valve Morphologically normal pulmonic valve. Mild pulmonary valve regurgitation. Pericardium Normal pericardium without effusion. Aorta Normal ascending aorta dimension. Garland Sosa MD (Electronically Signed) Final Date: 07 January 2017 17:43
--- NOTE | 2017-01-07 18:15 | Gastrointestinal Consult Note ---
Assessment and Plan (1) Lower GI hemorrhage Status: Acute Assessment and plan: I believe this is likely due to the cautery sites where the AVMs and polyp were removed in the colon. These have started to bleed now the patient is been on Plavix for the last 1 week. She likely needs to be off the Plavix for another week prior to restarting this along with aspirin. She does have a somewhat remote history of stents. We will also take this opportunity treat her underlying colitis with standard therapy for Mastocytic colitis with a combination of Zyrtec and Zantac. Check a tagged red blood cell scan tomorrow to see if the patient is continuing her bleeding. Current Visit: Yes (2) Chronic nonspecific colitis Status: Acute Assessment and plan: As mentioned above this patient has Mastocytic colitis, we will treat this with a combination of Zantac and Zyrtec. Current Visit: Yes (3) Family hx of colon cancer Status: Acute Assessment and plan: The patient does not have colon cancer, but the tubular adenoma in the transverse colon with be bringing us back for repeat colonoscopy in 5 years. Current Visit: Yes (4) Acute blood loss anemia Status: Acute Assessment and plan: We will continue to watch the patient's hematocrit posttransfusion. Unfortunately will take some time before the aspirin and Plavix's effects to wear off. We will continue to support with IV fluids and blood products as needed. Hopefully if the bleeding scan is negative tomorrow we will not have to repeat colonoscopy and cauterize further. Current Visit: Yes History of Present Illness Chief complaint: maroon red blood per rectum 2 weeks after undergoing colonoscopy on Plavix History of present illness: Ms. Jones is a 61 year old female who is a history of diarrhea approximately 5-6 times per day who also has a history of rectal bleeding and hemorrhoids. He'll underwent recent colonoscopy after holding Plavix for several days she takes due to her stents. The colonoscopy was performed on 12/23/16 and included hot biopsy and cold biopsy for pathology to AVMs were noted in the cecum that were cauterized with the hot biopsy forceps routine biopsies were taken elsewhere through the colon and there was also a single transverse polyp that was removed by biopsy polypectomy. Patient's father has a history of colorectal cancer in his 60s. She continued to have diarrhea post biopsies and these biopsies did demonstrate mastocytic colitis. We will try starting the patient on some Zantac and zyrtec, but I suspect that the biopsies along with debris exposure Plavix has resulted in the bloody diarrhea occurring this patient. She has a low-grade tenderness in all quadrants of her abdomen likely left over from her ongoing colitis. The stool that she is having now is described as maroon, we will obtain a tagged red blood cell scan to see if this is ongoing tomorrow once the patient has had a chance to stay off her Plavix slightly longer. She is getting transfused the second of 2 units now. Her hematocrit and hemoglobin have been 24.6 and 8.2 now the hemoglobin is list is being done to 6.7. Home Medications Medication Instructions Recorded Confirmed Type Clopidogrel [Plavix] 75 mg PO DAILY 08/27/16 01/06/17 History Dapagliflozin Propanediol [Farxiga] 5 mg PO DAILY 08/27/16 01/06/17 History Furosemide Tab [Lasix Tab] 40 mg PO DIRECTED PRN 08/27/16 01/06/17 History Insulin Glargine [Lantus] 22 units SUBCUT BEDTIME 08/27/16 01/06/17 History Lisinopril/Hydrochlorothiazide 1 tablet PO DAILY 08/27/16 01/06/17 History [Lisinopril-Hctz 20-12.5 mg Tab] Metoprolol Succinate 25 mg PO DAILY 08/27/16 01/06/17 History Omeprazole 20 mg PO BID 08/27/16 01/06/17 History glipiZIDE [Glipizide] 5 mg PO BID 08/27/16 01/06/17 History metFORMIN [Glucophage] 850 mg PO BID 08/27/16 01/06/17 History Ciprofloxacin Tab [Cipro Tab] 500 mg PO BID #20 tablet 01/05/17 01/06/17 Rx traMADol TAB [Ultram] 50 mg PO Q6H PRN #20 tablet 01/05/17 01/06/17 Rx Allergies Allergy/AdvReac Type Severity Reaction Status Date / Time No Known Allergies Allergy Verified 08/27/16 11:38 Medical,Surgical,& Family Hx - Medical History Cardio: History of: Hypertension, Cardiovascular Problems (STENT) Psychological: History of: Anxiety Disorders No history of: Bipolar Disorder, Depression, Psychiatric Problems Neurology: No history of: Seizures, Neurological Problems HEENT: History of: Eye Problem (Retina problems) Endocrine: History of: Diabetes Mellitus (IDDM), Dyslipidemia Rheumatology: No history of;: Rheumatological Problems Respiratory: History of: Obstructive Sleep Apnea No history of: Respiratory Problems Genitourinary: History of: Bladder Problem, Recurring Urinary Tract Infections Gastrointestinal: History of: Clostridium Difficile, GERD, Hemorrhoids, Hematochezia No history of: GI Problems Reproductive: No history of: Abnormal Pap Smear, Breast Cancer, Reproductive Cancer - Surgical History Cardiac Surgeries: Sugical HX of: Cardiac Catheterization (Stent x1 - - Last visit 12/21/2016 - negative w/u) Patient Denies: Carotid Endarterectomy HEENT Surgeries: Surgical HX of: Eye Surgery (Cataracts bilaterally removed) Patient denies: Carotid Endarterectomy Abdominal Surgeries: Surgical HX of: Abdominal Surgery, Appendectomy, Cholecystectomy, Hernia Repair (Abdominal hernia) Patient denies: Colonoscopy, Gastric Bypass Surgery, EGD Reproductive Surgeries: Surgical HX of;: Gynecologic Surgery, Hysterectomy Patient denies;: Genitourinary Surgery Orthopedic Surgeries: Patient denies;: Implanted Devices, Orthopedic Surgery - Family History Family History: Reports;: Family Cancer (Father (lung)), Family Diabetes (Mother , SOn), Family Heart Disease (Mother), Family Hypertension (Mother) Denies;: Family Anesthesia Reaction, Family Psychiatric Problems, Family Stroke - Social History Smoking Status: Never smoker Frequency of Alcohol Use: None Type of Drug Use: None Review of systems: Constitutional: Denies fever, chills, nausea, and vomiting Eyes: Denies dry eyes, and scleral icterus HENT: Denies headaches Cardiovascular: Denies acute chest pain and claudication Respiratory: Denies shortness of breath, wheezing, and difficulty breathing, denies cough Gastrointestinal: As noted in the HPI Genitourinary: Denies dysuria and hematuria Neurologic: Denies vision loss, and loss of sensation Musculoskeletal: She does have some mild joint swelling, joint stiffness, and muscular weakness Psychiatric: Denies depression and matt symptoms Heme-Lymph: Denies easy bruising, lymph node enlargement or tenderness, night sweats, excessive bleeding Allergies-immunologic: Denies pruritus and rhinorrhea Exam - Constitutional Vitals: Period Temp Pulse Resp BP Sys/Gastelum Pulse Ox Last 24 Hr 97.4 F-99.2 F 80-92 16-20 98-133/54-88 99-100 General appearance: mild distress - Head Head exam: Present: normocephalic, atraumatic - Eye Eye exam: Present: EOMI Pupils: Present: WERO - Respiratory Respiratory exam: Present: clear to auscultation bilaterally. Absent: rales, rhonchi, stridor - Cardiovascular Cardiovascular exam: Present: regular rate and rhythm - GI/Abdominal GI/Abdominal exam: Present: normal bowel sounds, tenderness, soft. Absent: distended, guarding, rebound - Extremities Exam Extremities exam: Present: edema (reason the ankles and legs bilaterally) - Neurological Exam Neurological exam: Present: alert, oriented X3, CN II-XII intact. Absent: motor sensory deficit - Psychiatric Psychiatric exam: Present: normal affect, normal mood - Skin Skin exam: Present: warm Results - Labs CBC & BMP: 01/07/17 00:50 01/06/17 11:55 Specialty Discharge - Follow Up or Referrals Follow up with: Kiersten Ball MD [Physician] -
[2017-01-07] MEDS: INSULIN GLARGINE 100 UNIT/ML SUBCUT SCH (21:56)
--- NOTE | 2017-01-07 22:04 | Nuclear Medicine Report ---
History: GI bleed Date: 01/07/2017 Study: Nuclear medicine GI bleeding study Comparison exam: No previous similar Tagged red blood cell bleeding study was performed, with 25 mCi technetium 99m PYP utilized. Immediate flow images were obtained. Dynamic images were also acquired over the abdomen and pelvis for 60 minutes. There is normal flow distribution of tracer. There is no active GI bleeding during the course of the exam. There is normal blood pool activity within the upper abdominal organs and major vascular structures. There is normal bladder activity. Impression: No acute GI bleeding PROCEDURE INTERPRETED AT [facility] DEPARTMENT OF RADIOLOGY Final Report Signed by: Dr. Brittaney Gutierrez
[2017-01-07 23:02] LABS: Apearance,Urine CLOUDY (Clear); Bacteria,Urine Few /HPF (Few); Bilirubin,Urine Negative (Negative); Blood, Urine Moderate mg/dL (Negative); Glucose,Urine (UA) Negative (Negative); Hyaline Casts,Urine 3 /LPF (0-3); Ketones,Urine Negative (Negative); Mucus,Urine Occasional /LPF (Occasional); Nitrite,Urine Negative (Negative); Protein,Urine Negative; RBC,Urine 6 /HPF (0-4); Squamous Epithelial Cell,Urine Occasional /HPF (0-10); Transitional Epi Cells,Urine Occasional /HPF (<1); Urine Color Yellow (Yellow); Urine Specific Gravity 1.018 (1.001-1.035); Urine Urobilinogen < 2.0 EU/DL (0.2-1.0); WBC,Urine 137 /HPF (0-6)
--- NOTE | 2017-01-08 07:32 | EKG Report ---
Stationary ECG Study [facility] Test Date: 01/08/2017 7:31:51 AM Pat Name: HELADIO HAIRSTON Department: Room: 265 Gender: F Lead Data Entry Operator: OMAR : 1955 Requested by: Garland Sosa Order Number: [id number] Reading MD: JAI GOVEA Intervals [place] Rate: 82 P: 36 NM: 187 QRS: 4 QRSD: 105 T: 28 QT: 376 QTc: 415 Interpretive Statements SINUS RHYTHM Electronically Signed On 01-12-17 11:04:11 [employer]INK ASSEMBLY SUPERVISOR by JAI GOVEA [email or web address]
--- NOTE | 2017-01-08 07:46 | Urology Progress Note ---
Urology - PN: Subj Interval history: The patient's urine culture this admission showing no growth so far but her urine culture on January 05 in the emergency room grew out Escherichia coli that was sensitive to Macrobid. She is afebrile and her white count is not elevated so I will stop the Rocephin and switch her to Macrobid. Her urine is grossly clear Exam - Constitutional Vitals: Period Temp Pulse Resp BP Sys/Gastelum Pulse Ox Last 24 Hr 96.2 F-99.2 F 78-92 16-20 98-151/54-88 96-100 Results - Labs CBC & BMP: 01/08/17 03:52 01/06/17 11:55 Specialty Discharge - Follow Up or Referrals Follow up with: Kiersten Ball MD [Physician] -
[2017-01-08] MEDS: INSULIN LISPRO 100 UNIT/ML SUBCUT SCH ×4 (08:55→20:35)
[2017-01-08] MEDS: traMADol 50 MG TABLET PO SCH ×3 (09:46→20:34)
[2017-01-08] MEDS: LOSARTAN 25 MG TABLET PO SCH (09:46)
[2017-01-08] MEDS: ACETAMINOPHEN 325 MG TABLET PO SCH ×2 (09:46→20:34)
[2017-01-08] MEDS: glipiZIDE 5 MG TABLET PO SCH ×2 (09:46→20:34)
[2017-01-08] MEDS: GABAPENTIN 100 MG CAPSULE PO SCH ×3 (09:46→20:34)
[2017-01-08] MEDS: CETIRIZINE 10 MG TABLET PO SCH (09:46)
[2017-01-08] MEDS: CARVEDILOL 3.125 MG TABLET PO SCH ×2 (09:46→20:34)
[2017-01-08] MEDS: NITROFURANTOIN MACRO/MONO 100 MG CAPSULE PO SCH ×2 (09:46→20:34)
[2017-01-08] MEDS: PANTOPRAZOLE 40 MG VIAL IV SCH ×2 (09:47→20:36)
--- NOTE | 2017-01-08 10:50 | Gastrointestinal Progress Note ---
Assessment and Plan (1) Lower GI hemorrhage Status: Acute Assessment and plan: I believe this is likely due to the cautery sites where the AVMs and polyp were removed in the colon. These have started to bleed now the patient is been on Plavix for the last 1 week. She likely needs to be off the Plavix for another week prior to restarting this along with aspirin. She does have a somewhat remote history of stents. We will also take this opportunity treat her underlying colitis with standard therapy for Mastocytic colitis with a combination of Zyrtec and Zantac. Check a tagged red blood cell scan tomorrow to see if the patient is continuing her bleeding. 01/08/17--no further bleeding noted today. Patient's hemoglobin is stable in the 8 g/dL range at this time. I suspect she could probable be discharged with EKG of staying off of her Plavix/aspirin for the next 1-2 weeks to allow additional healing of the previous polypectomy sites to occur. I would leave it to cardiology to see if she actually even needs the Plavix restarted given the remote nature of the stent placement. Current Visit: Yes (2) Chronic nonspecific colitis Status: Acute Assessment and plan: As mentioned above this patient has Mastocytic colitis, we will treat this with a combination of Zantac and Zyrtec. Prescription provided for the Zyrtec. I believe the patient is already taking Protonix which should cover her for this condition as well, as an adequate substitute for the Zantac. If the diarrhea is continuing after 3 weeks we can consider switching her over to budesonide or perhaps Asacol as alternatives. Current Visit: Yes (3) Family hx of colon cancer Status: Acute Assessment and plan: The patient does not have colon cancer, but the tubular adenoma in the transverse colon with be bringing us back for repeat colonoscopy in 5 years. 01/08/17--repeat colonoscopy in 5 years as mentioned above. Patient is stable for discharge from my opinion. Current Visit: Yes (4) Acute blood loss anemia Status: Acute Assessment and plan: We will continue to watch the patient's hematocrit posttransfusion. Unfortunately will take some time before the aspirin and Plavix's effects to wear off. We will continue to support with IV fluids and blood products as needed. Hopefully if the bleeding scan is negative tomorrow we will not have to repeat colonoscopy and cauterize further. 01/08/17--the patient's hemoglobin appears stable. The tagged red blood cell scan is negative, I believe she could probably be discharged from the hospital at this point. I do suggest holding off on further Plavix use and anticoagulation for the next 1-2 weeks. Current Visit: Yes Gastroenterology - PN: Subj Interval history: No further bleeding from the rectum as per the patient. The tapered blood cell scan obtained yesterday afternoon was negative. This is presumed bleeding from a prior polypectomy site. Less diarrhea today. Exam (Progress Note) - Constitutional Vitals: Period Temp Pulse Resp BP Sys/Gastelum Pulse Ox Last 24 Hr 96.2 F-99.2 F 2-92 16-20 98-151/54-88 96-100 General appearance: no acute distress - Head Head exam: Present: normocephalic, atraumatic - Eye Eye exam: Present: EOMI Pupils: Present: WERO - Neck Neck exam: Present: normal inspection - Respiratory Respiratory exam: Present: clear to auscultation bilaterally - Cardiovascular Cardiovascular exam: Present: regular rate and rhythm - GI/Abdominal GI/Abdominal exam: Present: normal bowel sounds, soft. Absent: distended, guarding, tenderness, rebound - Neurological Exam Neurological exam: Present: alert, oriented X3, CN II-XII intact. Absent: motor sensory deficit - Psychiatric Psychiatric exam: Present: normal affect, normal mood - Skin Skin exam: Present: warm Results - Labs CBC & BMP: 01/08/17 03:52 01/06/17 11:55 Specialty Discharge - Follow Up or Referrals Follow up with: Kiersten Ball MD [Physician] - Howie Morgan MD [Physician] - 01/29/17 9:30 am (f/u 3 weeks)
--- NOTE | 2017-01-08 16:52 | Hospitalist Progress Note ---
Assessment and Plan (1) Acute blood loss anemia Status: Acute Assessment and plan: Will not be putting patient back on Plavix we will only restart a baby aspirin after 1-2 weeks Current Visit: Yes (2) Lower GI hemorrhage Status: Acute Assessment and plan: Recent colonoscopy December 23, 2016 showed transverse polyp which was removed, 2 AVMs in the cecum, cholangiole colitis, moderate size internal hemorrhoids. Dr. Selby recommends monitoring Current Visit: Yes (3) Chest pain Status: Acute Assessment and plan: Serial troponins negative, stress test as outpatient Current Visit: Yes (4) IDDM (insulin dependent diabetes mellitus) Status: Acute Assessment and plan: cont insulin and glyburide hold metformin Current Visit: Yes (5) Hypertension Status: Acute Assessment and plan: cont Coreg and losartan Current Visit: Yes (6) LALIT (obstructive sleep apnea) Status: Acute Assessment and plan: Dr. Mcgee recommends outpatient sleep study, Current Visit: Yes (7) Urinary tract infection Status: Acute Assessment and plan: Urine out E. coli which is sensitive to Macrobid. Dr. Morgan is at least already changed her prescription Current Visit: No (8) Hematuria Status: Acute Assessment and plan: Resolved Current Visit: No Hospitalist: Subjective Interval history: I would like to watch patient 1 more night before letting her go home. She looks good today and she feels okay. If her hemoglobin is stable in the morning we will let her go Exam - Constitutional Vitals: Period Temp Pulse Resp BP Sys/Gastelum Pulse Ox Last 24 Hr 96.2 F-98.7 F 78-85 18-20 106-151/59-80 96-100 Exam: Heart Rate-[RRR] Lungs-[CTAB] GI-[+bs soft, NT, obese] Ext-[no edema] neuro motor 5/5, alert and oriented times 3 psych normal mood and affect general no acute distress Results - Labs CBC & BMP: 01/08/17 12:10 01/06/17 11:55 Lab Results: I have reviewed the past 24 hour labs Labs: Urine culture negative no growth Specialty Discharge - Follow Up or Referrals Follow up with: Kiersten Ball MD [Physician] - Howie Morgan MD [Physician] - 01/29/17 9:30 am (f/u 3 weeks)
--- NOTE | 2017-01-08 17:00 | Discharge Summary ---
<Olivia Pollack - Last Filed: 01/08/17 18:11> Hospital Course - Hospital Course Hospital Course: Ms. Jones was admitted on 01/06 with chest pain, IDDM, HTN, LALIT, UTI, hematuria, and lower GI bleed. She was recently started on Cipro, however, she did have an episode of chest pressure and associated shortness of breath. He has had C scopes in the past and had 2 AVM's in the cecum that were cauterized in the past. Dr. Mcgee was consulted for sleep medicine given daytime fatigue. She also has symptoms of restless leg disorder that can be associated with diabetic neuropathy and iron deficiency anemia. 2 units of PRBC's were transfused for acute blood loss anemia and blood thinners were held and H/H q 8 hrs were drawn. Cardiology was consulted and Dr. Sosa saw on 01/07 for her chest pain. Musculoskeletal pain will be treated with tramadol, tylenol, gabapentin. Dr. Morgan was consulted for urology for UTI. Urine earlier in the week grew E coli and was put on Rocephin IV for this. Dr. Killian was consulted for her Lower GI Bleeding. It was felt that her bleed is likely due to the cautery sites where AVM's and polyps were removed in her colon. She began to bleed after being on Plavix for 1 week. H/H is stable and he will be ready for discharge on 01/09. Plavix will be held and he will be sent home on baby ASA. - Time spent with patient Time with patient DS: Greater than 30 minutes Diagnosis - Discharge Diagnosis (1) E. coli UTI Status: Acute (2) Acute blood loss anemia Status: Acute (3) Chest wall pain Status: Acute (4) Coronary artery disease Status: Acute (5) Hypertension Status: Acute (6) IDDM (insulin dependent diabetes mellitus) Status: Acute (7) Lower GI hemorrhage Status: Acute (8) LALIT (obstructive sleep apnea) Status: Acute (9) Periodic limb movement disorder Status: Acute (10) Hematuria Status: Acute Specialty Discharge - Follow Up or Referrals Follow up with: Kiersten Ball MD [Physician] - Howie Morgan MD [Physician] - 01/29/17 9:30 am (f/u 3 weeks) Discharge Plan - Discharge Data Disposition: Disch To Home/Self Care - Discharge Medications New Carvedilol [Coreg] 3.125 mg PO BID #60 tablet Cetirizine Tab [ZyrTEC Tab] 10 mg PO DAILY #30 tablet Gabapentin Cap/Tab [Neurontin Cap/Tab] 100 mg PO TID #90 capsule Losartan [Cozaar] 25 mg PO DAILY #30 tablet Nitrofurantoin Macro/[place] [Macrobid] 100 mg PO BID #20 capsule Pantoprazole Tab [Protonix Tab] 40 mg PO DAILY #30 tablet Continue metFORMIN [Glucophage] 850 mg PO BID glipiZIDE [Glipizide] 5 mg PO BID Insulin Glargine [Lantus] 22 units SUBCUT BEDTIME Dapagliflozin Propanediol [Farxiga] 5 mg PO DAILY traMADol TAB [Ultram] 50 mg PO Q6H PRN #20 tablet PRN Reason: Pain Discontinued Lisinopril/Hydrochlorothiazide [Lisinopril-Hctz 20-12.5 mg Tab] 1 tablet PO DAILY Furosemide Tab [Lasix Tab] 40 mg PO DIRECTED PRN PRN Reason: Edema Omeprazole 20 mg PO BID Clopidogrel [Plavix] 75 mg PO DAILY Metoprolol Succinate 25 mg PO DAILY Ciprofloxacin Tab [Cipro Tab] 500 mg PO BID #20 tablet - Follow Up or Referral Follow Up: Kiersten Ball MD [Physician] - Howie Morgan MD [Physician] - 01/29/17 9:30 am (f/u 3 weeks) Yi Mcgee MD [Physician] - 2 Weeks - Forms/Instructions Exam - Constitutional Vitals: Period Temp Pulse Resp BP Sys/Gastelum Pulse Ox Last 24 Hr 96.6 F-97.9 F 72-86 16-20 109-160/60-89 95-100 Discharge Results Procedures and tests throughout hospitalization: Pending Orders 01/07/17 Urine Culture Routine Labs on day of discharge: Labs from last 24 hours 01/09/17 01/08/17 01/08/17 03:23 20:32 14:57 Hgb 8.4 L POC Glucose 205 H 184 H 01/08/17 01/08/17 12:10 12:04 Hgb 9.2 L POC Glucose 125 H Preliminary micro results at discharge 01/07/17 Unknown Urine Culture - Preliminary Urine,Voided No Growth at 12 hours. DS: Provider Date of admission: 01/07/17 10:45 Primary care physician: Rocio Marcial NP Attending physician on admission: Verito Irwin MD Discharging clinician: Olivia Pollack NP <Verito Irwin - Last Filed: 01/09/17 11:04> Hospital Course - Hospital Course Hospital Course: Patient seen and examined. Hospital course reviewed and edited. Stress test will be performed as an outpatient. Dr. Killian is recommended not to restart blood thinners for 2 weeks. I would not restart her Plavix. Baby aspirin will be restarted in 2 weeks. Patient needs an outpatient sleep study. Patient's hemoglobin is stable today. Discharged home with follow-up with Dr. Ball, Dr. Killian, Dr. Mcgee. Diagnosis - Discharge Diagnosis (1) Acute blood loss anemia Status: Acute (2) Lower GI hemorrhage Status: Acute (3) Chest pain Status: Acute (4) IDDM (insulin dependent diabetes mellitus) Status: Acute (5) Hypertension Status: Acute (6) LALIT (obstructive sleep apnea) Status: Acute (7) Urinary tract infection Status: Acute (8) Hematuria Status: Acute Discharge Plan - Discharge Data Condition at Discharge: Stable Discharge Diet: diabetic diet Activity: resume usual activities as tolerated Hygiene: no restrictions Weight Bearing at Discharge: full weight bearing - Forms/Instructions Additional Discharge Instructions: Restart baby aspirin in 2 weeks Exam - Constitutional General appearance: no acute distress, morbidly obese - Respiratory Respiratory exam: Present: clear to auscultation bilaterally. Absent: rhonchi, wheezes - Cardiovascular Cardiovascular exam: Present: regular rate and rhythm. Absent: systolic murmur - GI/Abdominal GI/Abdominal exam: Present: normal bowel sounds, soft. Absent: tenderness - Extremities Exam Extremities exam: Present: normal inspection, normal capillary refill - Neurological Exam Neurological exam: Present: alert, oriented X3
[2017-01-08] MEDS: INSULIN GLARGINE 100 UNIT/ML SUBCUT SCH (20:35)
[2017-01-09] MEDS: INSULIN LISPRO 100 UNIT/ML SUBCUT SCH ×2 (08:08→12:09)
--- NOTE | 2017-01-09 08:10 | EKG Report ---
Stationary ECG Study [facility] Test Date: 01/09/2017 8:09:36 AM Pat Name: HELADIO HAIRSTON Department: Room: 265 Gender: F Gaming Associate: CATHERINE : 1955 Requested by: Garland Sosa Order Number: [id number] Reading MD: JAI GOVEA Intervals [place] Rate: 79 P: 48 [place]: 190 QRS: 6 QRSD: 105 T: 39 QT: 374 QTc: 409 Interpretive Statements SINUS RHYTHM Electronically Signed On 01-12-17 11:31:12 DYE BLENDER by JAI GOVEA [id number]
[2017-01-09] MEDS: PANTOPRAZOLE 40 MG VIAL IV SCH (08:26)
--- NOTE | 2017-01-09 09:18 | Urology Progress Note ---
Urology - PN: Subj Interval history: The patient's urine remains grossly clear and she has no bladder symptoms. She' ll go home on Macrobid and I'll follow her in the office Exam - Constitutional Vitals: Period Temp Pulse Resp BP Sys/Gastelum Pulse Ox Last 24 Hr 96.6 F-97.9 F 72-86 16-20 109-160/60-89 95-100 Results - Labs CBC & BMP: 01/09/17 03:23 01/06/17 11:55 Specialty Discharge - Follow Up or Referrals Follow up with: Kiersten Ball MD [Physician] - Howie Morgan MD [Physician] - 01/29/17 9:30 am (f/u 3 weeks)
[2017-01-09] MEDS: NITROFURANTOIN MACRO/MONO 100 MG CAPSULE PO SCH (09:29)
[2017-01-09] MEDS: GABAPENTIN 100 MG CAPSULE PO SCH (09:30)
[2017-01-09] MEDS: CETIRIZINE 10 MG TABLET PO SCH (09:30)
[2017-01-09] MEDS: ACETAMINOPHEN 325 MG TABLET PO SCH (09:30)
[2017-01-09] MEDS: glipiZIDE 5 MG TABLET PO SCH (09:31)
[2017-01-09] MEDS: LOSARTAN 25 MG TABLET PO SCH (09:32)
[2017-01-09] MEDS: traMADol 50 MG TABLET PO SCH (09:32)
[2017-01-09] MEDS: CARVEDILOL 3.125 MG TABLET PO SCH (09:32)
[2017-01-09] MEDS ORDERED: INFLUENZA VIRUS VACCINE 0.5 ML SYRINGE IM ONE (11:20)
[2017-01-09] MEDS ORDERED: PNEUMOCOCCAL VACCINE (23 VALENT) 0.5 ML VIAL IM ONE (11:20)
[2017-01-09 11:37] VITALS: BP 150/81
--- NOTE | 2017-01-11 12:27 | Cardiology Progress Note ---
I, Tessie Espinosa RN, am scribing for, and in the presence of, Garland Sosa MD 12:27. Assessment and Plan (1) Chest pain Status: Acute Assessment and plan: Initial Assessment 01/07/17 We will continue to cycle cardiac biomarkers and EKG. We will obtain an echocardiogram to evaluate for any wall motion abnormalities. We will try to obtain her previous cath reprots from [place]. She is to receive 2 units of blood today. This may help some with her symptoms. GI will see her in consultation. At this time, her Aspirin and Plavix are being held. Her stents are at least a year old, she believes her stent was placed around 5 years ago. We will continue to follow and aid in management of her chest discomfort. Thank you for allowing us to participate in her care. Differential diagnosis of her chest pain include coronary disease, GI or muscle skeletal. When I press on her chest it does reproduce the same pain. This could be musculoskeletal. So far, cardiac isoenzymes are negative. plan/recommendation: Treat for musculoskeletal pain-tramadol, Tylenol, gabapentin Echo/Doppler-evaluate murmur Agree with consulting sleep medicine-likely has sleep apnea No aspirin or Plavix for now because of her GI bleeding GI may proceed with workup as deem best. No contraindication for E scope her C scope. Cardiac isoenzymes every 6 hours 4 EKG every morning times 3 a proton pump inhibitor. Further decisions depends upon response to therapy. At this point she is not in a heart cath or stress test Thank you for allowing me to participate in this patient's care 01/08/17-plan/recommendation: Her chest wall pain is better. Agree with her being off the Plavix and aspirin for now. In fact, her stents were years ago so one could argue leaving her off the Plavix long-term, given her GI bleeding, but I would like her back on the aspirin in the near future. Dr. Irwin says she will restart it within about a week. I emphasized to the patient that this is very important for the stents. It will be 81 mg p.o. daily minimum. I conferred care with Dr. Irwin. (2) Chest wall pain Status: Acute (3) Coronary artery disease Status: Acute (4) Hypertension Status: Acute (5) IDDM (insulin dependent diabetes mellitus) Status: Acute (6) Lower GI hemorrhage Status: Acute (7) LALIT (obstructive sleep apnea) Status: Acute (8) Hematuria Status: Acute (9) Urinary tract infection Status: Acute Cardiology - PN: Subj Interval history: Seen on telemetry, sitting up in chair in no acute distress. States she feels much better. Denies chest pain, shortness of breath, or palpitations. Troponins have been negative x 3. Denies any blood in her stool or urine. Plavix is being held. Exam (Progress Note) - Constitutional Vitals: Period Temp Pulse Resp BP Sys/Gastelum Pulse Ox Last 24 Hr 96.2 F-99.2 F 78-89 16-20 99-151/54-80 96-100 General appearance: no acute distress, over weight - Head Head exam: Absent: abrasion, hematoma - Neck Neck exam: Absent: tenderness - Respiratory Respiratory exam: Present: clear to auscultation bilaterally. Absent: accessory muscle use, chest wall tenderness - Cardiovascular Cardiovascular exam: Present: regular rate and rhythm - GI/Abdominal GI/Abdominal exam: Present: normal bowel sounds, tenderness, soft. Absent: distended - Extremities Exam Extremities exam: Absent: calf tenderness, edema - Neurological Exam Neurological exam: Present: alert, oriented X3 - Psychiatric Psychiatric exam: Present: normal affect, normal mood - Skin Skin exam: Present: warm, dry Result/EKG - Labs CBC & BMP: 01/09/17 03:23 01/06/17 11:55 Lab Results: I have reviewed the past 24 hour labs Labs: Laboratory Results - last 24 hr 01/07/17 01/07/17 01/07/17 15:09 19:35 22:00 Hgb POC Glucose 200 H 180 H Urine Color Yellow Urine Appearance Cloudy Urine pH 5.0 Ur Specific [place] 1.018 Urine Protein Negative Urine Glucose (UA) Negative Urine Ketones Negative Urine Blood Moderate Urine Nitrate Negative Urine Bilirubin Negative Urine Urobilinogen < 2.0 H Urine Leukocytes Large H Urine RBC 6 Urine WBC 137 Ur Squamous Epith Cells Occasional Ur Transition Epith Cell Occasional Urine Bacteria Few Hyaline Casts 3 Urine Mucus Occasional Ur Culture Indicated? Results to follow 01/07/17 01/08/17 01/08/17 22:18 03:52 07:58 Hgb 9.0 L D 8.1 L POC Glucose 111 H Urine Color Urine Appearance Urine pH Ur Specific [place] Urine Protein Urine Glucose (UA) Urine Ketones Urine Blood Urine Nitrate Urine Bilirubin Urine Urobilinogen Urine Leukocytes Urine RBC Urine WBC Ur Squamous Epith Cells Ur Transition Epith Cell Urine Bacteria Hyaline Casts Urine Mucus Ur Culture Indicated? 01/08/17 01/08/17 12:04 12:10 Hgb 9.2 L POC Glucose 125 H Urine Color Urine Appearance Urine pH Ur Specific [place] Urine Protein Urine Glucose (UA) Urine Ketones Urine Blood Urine Nitrate Urine Bilirubin Urine Urobilinogen Urine Leukocytes Urine RBC Urine WBC Ur Squamous Epith Cells Ur Transition Epith Cell Urine Bacteria Hyaline Casts Urine Mucus Ur Culture Indicated? - EKG EKG results: interpreted by me EKG shows: sinus rhythm Specialty Discharge - Follow Up or Referrals Follow up with: Kiersten Ball MD [Physician] - Yi Mcgee MD [Physician] - 2 Weeks Howie Morgan MD [Physician] - 01/29/17 9:30 am (f/u 3 weeks) IIan Dale, MD, personally performed the services described in this documentation, ascribed by Tessie Espinosa RN in my presence, and it is both accurate and complete 227 .
--- NOTE | 2017-01-11 12:28 | Cardiology Progress Note ---
Assessment and Plan (1) Chest pain Status: Acute Assessment and plan: Initial Assessment 01/07/17 We will continue to cycle cardiac biomarkers and EKG. We will obtain an echocardiogram to evaluate for any wall motion abnormalities. We will try to obtain her previous cath reprots from [place]. She is to receive 2 units of blood today. This may help some with her symptoms. GI will see her in consultation. At this time, her Aspirin and Plavix are being held. Her stents are at least a year old, she believes her stent was placed around 5 years ago. We will continue to follow and aid in management of her chest discomfort. Thank you for allowing us to participate in her care. Differential diagnosis of her chest pain include coronary disease, GI or muscle skeletal. When I press on her chest it does reproduce the same pain. This could be musculoskeletal. So far, cardiac isoenzymes are negative. plan/recommendation: Treat for musculoskeletal pain-tramadol, Tylenol, gabapentin Echo/Doppler-evaluate murmur Agree with consulting sleep medicine-likely has sleep apnea No aspirin or Plavix for now because of her GI bleeding GI may proceed with workup as deem best. No contraindication for E scope her C scope. Cardiac isoenzymes every 6 hours 4 EKG every morning times 3 a proton pump inhibitor. Further decisions depends upon response to therapy. At this point she is not in a heart cath or stress test Thank you for allowing me to participate in this patient's care 01/08/17-plan/recommendation: Her chest wall pain is better. Agree with her being off the Plavix and aspirin for now. In fact, her stents were years ago so one could argue leaving her off the Plavix long-term, given her GI bleeding, but I would like her back on the aspirin in the near future. Dr. Irwin says she will restart it within about a week. I emphasized to the patient that this is very important for the stents. It will be 81 mg p.o. daily minimum. I conferred care with Dr. Irwin. 01/09/17-plan/recommendation: Her chest pain is gone. Is apparently noncardiac. Apparently her bleeding is better. Okay with me to proceed with GI work when you say so. I did emphasize to the patient that she needed to restart her aspirin at 81 mg p.o. daily by the date of 01/15/17, next Wednesday. She voices understanding and agrees with plan. I emphasized it is important since she has coronary stents which could thrombose, will be much less likely if she takes at least a low-dose aspirin per day. (2) Chest wall pain Status: Acute (3) Coronary artery disease Status: Acute (4) Hypertension Status: Acute (5) IDDM (insulin dependent diabetes mellitus) Status: Acute (6) Lower GI hemorrhage Status: Acute (7) LALIT (obstructive sleep apnea) Status: Acute (8) Hematuria Status: Acute (9) Urinary tract infection Status: Acute Cardiology - PN: Subj Interval history: No more chest pain or shortness of breath. Exam (Progress Note) - Constitutional Exam: HEENT: Pupils equal, reactive to light and accommodation Neck: NoJVD or bruit Lungs clear to auscultation Heart: Regular rhythm rate with normal S1 and S2. Apical S4 Abdomen: No hepatosplenomegaly Spine/extremities: No clubbing, cyanosis, or edema Neuro: Nonfocal Psych: No depression or anxiety Result/EKG - Labs CBC & BMP: 01/09/17 03:23 01/06/17 11:55 Specialty Discharge - Follow Up or Referrals Follow up with: Kiersten Ball MD [Physician] - Yi Mcgee MD [Physician] - 2 Weeks Howie Morgan MD [Physician] - 01/29/17 9:30 am (f/u 3 weeks)
== END 2017-01-09 13:31 | disposition home or self-care (01) | DRG 378 ==
LOC: N.EDINP 11:50 → N.ED 11:50 → N.TELES 16:09
PROVIDERS: ADMIT Internal Medicine; ATTEND Internal Medicine

== ENCOUNTER 2017-10-16 22:50 | Inpatient (IN) ==
[2017-10-16] MEDS ORDERED: ALUM/MAG/SIMETH/LIDO VISC 1:1 30 ML BOTTLE PO STA (23:21)
[2017-10-16] MEDS ORDERED: KETOROLAC 30 MG/1 ML VIAL IV STA (23:21)
[2017-10-16] MEDS ORDERED: ALUM/MAG/SIMETH/LIDO VISC 1:1 30 ML BOTTLE PO ONE (23:27)
[2017-10-16] MEDS ORDERED: KETOROLAC 30 MG/1 ML VIAL ONE (23:27)
[2017-10-17 00:07] LABS: Troponin I Only < 0.015 NG/ML (0.00-0.045)
[2017-10-17] MEDS ORDERED: DEXTROSE 50% 25 GM/50 ML VIAL IV PRN (00:09)
[2017-10-17] MEDS: NITROGLYCERIN 2% OINT 1 INCH/GM PACK TOP SCH ×4 (00:09→17:19)
[2017-10-17] MEDS ORDERED: ONDANSETRON 4 MG/2 ML VIAL IV PRN (00:09)
[2017-10-17] MEDS ORDERED: GLUCAGON 1 MG VIAL IM PRN (00:09)
[2017-10-17 03:58] LABS: Basophils % 0.5 % (0.0-0.8); Eosinophils # 0.1 10*3/uL (0.0-0.87); Eosinophils % 2.2 % (0.00-10.9); Hematocrit 31.7 VOL% (35.7-47.0); Hemoglobin 10.9 GM/DL (12.0-16.0); Immature Granulocytes % 0.2 %; Immature Granulocytes Absolute 0.01 #; Lymphocytes # 2.6 10*3/uL (1.4-4.0); Lymphocytes % 47.3 % (21.3-54.2); Mean Corpuscular HGB Conc 34.4 GM/DL (32-36); Mean Corpuscular Hemoglobin 30 PG (27-34); Mean Corpuscular Volume 88.1 FL (87-102); Mean Platelet Volume 11.2 FL (9.6-12.0); Monocytes # 0.7 10*3/uL (0.11-0.8); Monocytes % 12.2 % (1.7-12.7); Neutrophils # 2.1 10*3/uL (1.4-7.4); Neutrophils % 37.6 % (38.7-73.9); Platelet Count 193 T/CUMM (130-400); White Blood Count 5.5 T/CUMM (4-12)
[2017-10-17 04:35] LABS: Alanine Aminotransferase 17 U/L (13-56); Albumin 2.7 G/DL (3.4-5.0); Alkaline Phosphatase 128 U/L (45-117); Aspartate Amino Transferase 12 U/L (0-37); Blood Urea Nitrogen 26 MG/DL (7-18); Calcium 8.5 MG/DL (8.5-10.1); Glucose 101 MG/DL (74-106); Potassium 3.7 MMOL/L (3.5-5.1); Sodium 143 MMOL/L (136-145); Total Protein 5.8 G/DL (6.4-8.3); Troponin I Only < 0.015 NG/ML (0.00-0.045)
[2017-10-17 05:38] LABS: Eosinophils 4 % (0-10); Lymphocytes 46 % (20-55); Platelet Estimate Decreased; Segmented Neutrophils 41 % (50-85); Total Cells Counted 100
[2017-10-17] MEDS ORDERED: glipiZIDE 5 MG TABLET PO SCH (07:30)
[2017-10-17] MEDS: INSULIN REGULAR 100 UNIT/ML SUBCUT SCH ×4 (08:16→21:00)
[2017-10-17] MEDS: INSULIN ASPART PROTAMINE/ASPART 70/30 100 UNIT/ML SUBCUT SCH ×2 (08:16→17:12)
[2017-10-17] MEDS ORDERED: LOSARTAN 25 MG TABLET PO SCH (09:00)
[2017-10-17] MEDS ORDERED: FLUCONAZOLE 150 MG TABLET PO SCH (09:30)
[2017-10-17] MEDS: CITALOPRAM 40 MG TABLET PO SCH (10:30)
[2017-10-17] MEDS: ASPIRIN 325 MG TABLET PO SCH (10:30)
[2017-10-17] MEDS: PANTOPRAZOLE 40 MG TABLET PO SCH (10:30)
[2017-10-17] MEDS: CLOPIDOGREL 75 MG TABLET PO SCH (10:30)
[2017-10-17] MEDS: CIPROFLOXACIN 500 MG TABLET PO SCH ×2 (10:30→22:24)
[2017-10-17] MEDS: FUROSEMIDE 40 MG TABLET PO SCH (10:30)
[2017-10-17] MEDS: METOPROLOL TARTRATE 25 MG TABLET PO SCH ×2 (10:31→22:24)
[2017-10-17] MEDS: (Dapagliflozin Propanediol [Farxiga] 5 MG) PO SCH (10:31)
[2017-10-17] MEDS: metFORMIN 850 MG TABLET PO SCH ×2 (14:42→22:26)
[2017-10-17] MEDS: GABAPENTIN 100 MG CAPSULE PO SCH ×2 (15:15→22:24)
[2017-10-17] MEDS ORDERED: ROSUVASTATIN 10 MG TABLET PO SCH (21:00)
[2017-10-17] MEDS: INSULIN LISPRO 100 UNIT/ML SUBCUT SCH (21:00)
[2017-10-18 00:35] LABS: Apearance,Urine Slightly Hazy (Clear); Bacteria,Urine Moderate /HPF (Few); Bilirubin,Urine Negative (Negative); Blood, Urine Moderate mg/dL (Negative); Glucose,Urine (UA) 50 mg/dL (Negative); Ketones,Urine Negative (Negative); Nitrite,Urine Negative (Negative); Protein,Urine 100 MG/DL; RBC,Urine 25 /HPF (0-4); Squamous Epithelial Cell,Urine Occasional /HPF (0-10); Urine Color Yellow (Yellow); Urine Specific Gravity 1.018 (1.001-1.035); Urine Urobilinogen < 2.0 EU/DL (0.2-1.0); WBC,Urine 241 /HPF (0-6)
[2017-10-18] MEDS: NITROGLYCERIN 2% OINT 1 INCH/GM PACK TOP SCH ×4 (01:58→17:56)
[2017-10-18 05:23] LABS: Basophils % 0.4 % (0.0-0.8); Eosinophils # 0.1 10*3/uL (0.0-0.87); Eosinophils % 2.4 % (0.00-10.9); Hemoglobin 11.4 GM/DL (12.0-16.0); Immature Granulocytes % 0.2 %; Immature Granulocytes Absolute 0.01 #; Lymphocytes # 2.4 10*3/uL (1.4-4.0); Lymphocytes % 45.4 % (21.3-54.2); Mean Corpuscular HGB Conc 34.5 GM/DL (32-36); Mean Corpuscular Hemoglobin 31 PG (27-34); Mean Corpuscular Volume 88.5 FL (87-102); Mean Platelet Volume 11.3 FL (9.6-12.0); Monocytes # 0.6 10*3/uL (0.11-0.8); Neutrophils # 2.1 10*3/uL (1.4-7.4); Neutrophils % 39.6 % (38.7-73.9); Platelet Count 200 T/CUMM (130-400); Red Blood Count 3.73 MC/CUMM (3.8-5.5); White Blood Count 5.3 T/CUMM (4-12)
[2017-10-18 06:00] LABS: Potassium 3.7 MMOL/L (3.5-5.1); Risk Ratio 4.46; VLDL CHOLESTEROL 19.6 MG/DL
[2017-10-18] MEDS ORDERED: glipiZIDE 10 MG TABLET PO SCH (09:00)
[2017-10-18] MEDS ORDERED: LOSARTAN 50 MG TABLET PO SCH (09:00)
[2017-10-18] MEDS: INSULIN REGULAR 100 UNIT/ML SUBCUT SCH ×3 (09:33→15:58)
[2017-10-18] MEDS: INSULIN ASPART PROTAMINE/ASPART 70/30 100 UNIT/ML SUBCUT SCH ×2 (09:34→16:27)
[2017-10-18] MEDS ORDERED: REGADENOSON 0.4 MG/5 ML SYRINGE IV ONE (10:00)
[2017-10-18] MEDS: GABAPENTIN 100 MG CAPSULE PO SCH ×2 (10:46→16:28)
[2017-10-18] MEDS: metFORMIN 850 MG TABLET PO SCH ×2 (10:47→15:25)
[2017-10-18] MEDS: PANTOPRAZOLE 40 MG TABLET PO SCH (10:47)
[2017-10-18] MEDS: CITALOPRAM 40 MG TABLET PO SCH (10:47)
[2017-10-18] MEDS: CLOPIDOGREL 75 MG TABLET PO SCH (10:47)
[2017-10-18] MEDS: CIPROFLOXACIN 500 MG TABLET PO SCH (10:47)
[2017-10-18] MEDS: ASPIRIN 325 MG TABLET PO SCH (10:49)
[2017-10-18] MEDS: METOPROLOL TARTRATE 25 MG TABLET PO SCH (10:49)
[2017-10-18] MEDS: INSULIN LISPRO 100 UNIT/ML SUBCUT SCH (10:49)
[2017-10-18] MEDS: FUROSEMIDE 40 MG TABLET PO SCH (10:50)
[2017-10-18] MEDS: (Dapagliflozin Propanediol [Farxiga] 5 MG) PO SCH (10:50)
[2017-10-18] MEDS ORDERED: hydrALAZINE 25 MG TABLET PO ONE (11:09)
[2017-10-18 17:10] VITALS: BP 184/85
== END 2017-10-18 19:28 | disposition home or self-care (01) | DRG 313 ==
LOC: N.ED 22:50 → N.EDINP 23:50 → N.TELES 10-17 00:08
PROVIDERS: ADMIT Internal Medicine Cardiovascular Disease; ATTEND Internal Medicine Cardiovascular Disease

== ENCOUNTER 2019-10-17 15:07 | Observation (INO) ==
[2019-10-17 17:03] LABS: Basophils % 0.5 % (0.0-0.8); Eosinophils # 0.1 10*3/uL (0.0-0.87); Eosinophils % 1.4 % (0.00-10.9); Hematocrit 32.5 VOL% (35.7-47.0); Hemoglobin 11.2 GM/DL (12.0-16.0); Immature Granulocytes % 0.3 %; Immature Granulocytes Absolute 0.02 #; Lymphocytes # 2.2 10*3/uL (1.4-4.0); Lymphocytes % 37.7 % (21.3-54.2); Mean Corpuscular HGB Conc 34.5 GM/DL (32-36); Mean Corpuscular Volume 89.5 FL (87-102); Mean Platelet Volume 11.9 FL (9.6-12.0); Monocytes % 9.1 % (1.7-12.7); Platelet Count 230 T/CUMM (130-400); Red Blood Count 3.63 MC/CUMM (3.8-5.5); Red Cell Distribution Width 12.7 % (9.3-17.3); White Blood Count 5.9 T/CUMM (4-12)
[2019-10-17] MEDS ORDERED: NITROGLYCERIN SL 0.4 MG TABLET SL STA ×2 (17:13→18:23)
[2019-10-17 17:35] LABS: Alanine Aminotransferase 23 U/L (13-56); Albumin 3.1 G/DL (3.4-5.0); Alkaline Phosphatase 190 U/L (45-117); Aspartate Amino Transferase 13 U/L (0-37); Blood Urea Nitrogen 16 MG/DL (7-18); Calcium 8.7 MG/DL (8.5-10.1); Estimated Glom Filtration Rate 90 ML/MIN; Glucose 456 MG/DL (74-106); Osmolality,Calculated 288.2 MOS/KG (273-304); Total Protein 7.2 G/DL (6.4-8.3); Troponin I < 0.015 NG/ML (0.00-0.045)
[2019-10-17] MEDS ORDERED: INSULIN REGULAR 100 UNIT/ML IV STA (18:10)
[2019-10-17] MEDS ORDERED: GLUCAGON 1 MG VIAL IM PRN (19:06)
[2019-10-17] MEDS ORDERED: ACETAMINOPHEN 325 MG TABLET PO PRN (19:06)
[2019-10-17] MEDS ORDERED: ONDANSETRON 4 MG/2 ML VIAL IV PRN (19:06)
[2019-10-17] MEDS ORDERED: DEXTROSE 50% 25 GM/50 ML VIAL IV PRN (19:06)
[2019-10-17 21:25] LABS: Calcium 8.7 MG/DL (8.5-10.1); Osmolality,Calculated 285.8 MOS/KG (273-304)
[2019-10-17] MEDS: ENOXAPARIN 40 MG/0.4 ML SYRINGE SUBCUT SCH (23:48)
[2019-10-17] MEDS: METOPROLOL TARTRATE 25 MG TABLET PO SCH (23:48)
[2019-10-17] MEDS: INSULIN REGULAR 100 UNIT/ML SUBCUT SCH (23:49)
[2019-10-18] MEDS: INSULIN REGULAR 100 UNIT/ML SUBCUT SCH ×4 (11:11→20:33)
[2019-10-18] MEDS ORDERED: REGADENOSON 0.4 MG/5 ML SYRINGE IV ONE (15:01)
[2019-10-18] MEDS: METOPROLOL TARTRATE 25 MG TABLET PO SCH ×2 (17:21→20:34)
[2019-10-18] MEDS: LOSARTAN 50 MG TABLET PO SCH (17:25)
[2019-10-18] MEDS: ASPIRIN CHEW 81 MG TABLET PO SCH (17:25)
[2019-10-18] MEDS: CLOPIDOGREL 75 MG TABLET PO SCH (17:25)
[2019-10-18] MEDS: CITALOPRAM 40 MG TABLET PO SCH (17:25)
[2019-10-18] MEDS: ENOXAPARIN 40 MG/0.4 ML SYRINGE SUBCUT SCH (20:32)
[2019-10-18] MEDS ORDERED: ROSUVASTATIN 10 MG TABLET PO SCH (21:00)
[2019-10-19] MEDS: ASPIRIN CHEW 81 MG TABLET PO SCH (08:55)
[2019-10-19] MEDS: METOPROLOL TARTRATE 25 MG TABLET PO SCH (08:55)
[2019-10-19] MEDS: LOSARTAN 50 MG TABLET PO SCH (08:55)
[2019-10-19] MEDS: INSULIN REGULAR 100 UNIT/ML SUBCUT SCH ×2 (08:55→11:31)
[2019-10-19] MEDS: CITALOPRAM 40 MG TABLET PO SCH (08:55)
[2019-10-19] MEDS: CLOPIDOGREL 75 MG TABLET PO SCH (08:55)
[2019-10-19 11:18] VITALS: BP 134/68
== END 2019-10-19 13:53 | disposition home or self-care (01) ==
LOC: N.ED 15:07 → N.EDINP 15:07 → SUATTDRO 19:06 → N.2W 22:30
PROVIDERS: ADMIT Internal Medicine Geriatric Medicine; ATTEND Internal Medicine